=== PATIENT | female | born 1965 | race Caucasian/White ===

== ENCOUNTER 2019-07-02 11:38 | Emergency (ER) | payer OTHER, MEDICAID, SELFPAY ==
[2019-07-02 12:01] VITALS: BP 132/85; PULSE 71; RESP 18; TEMP 37.1; O2SAT 100; BMI 22.7
[2019-07-02 12:25] LABS: Add Manual Diff / Slide Review NO; Basophils Absolute Auto 0 /uL (0-100); Basophils Percent Auto 0.6 % (0-2); Eosinophils Absolute Auto 100 /uL (0-450); Lymphocytes Absolute Auto 1000 /uL (1100-4500); Lymphocytes Percent Auto 17.4 % (25-40); Mean Corpuscular HGB Conc 33.5 % (30-36); Mean Corpuscular Hemoglobin 31.1 PG (26-34); Monocytes Absolute Auto 300 /uL (0-900); Monocytes Percent Auto 5.3 % (3-14); Neutrophils Absolute Auto 4400 /uL (1500-7000); Neutrophils Percent Auto 75.7 % (50-75); Platelet Count 214 X10^3/uL (150-400); Red Blood Cell Count 4.83 X10^6/uL (4.0-5.2); Red Cell Distribution Width 13.1 % (11.6-14.8); White Blood Cell Count 5.8 X10^3/uL (4.5-11.0)
[2019-07-02] MEDS: SODIUM CHLORIDE 0.9% 1,000 ML 1000 ML IV (12:26)
[2019-07-02] MEDS: ONDANSETRON 4 MG/2 ML INJ IV ×2 (12:26→13:55)
[2019-07-02 12:37] LABS: Alanine Aminotransferase 51 IU/L (9-52); Albumin 5.1 g/dL (3.5-5.0); Albumin Globulin Ratio 1.5 (1.0-2.8); Alkaline Phosphatase 93 U/L (38-126); Aspartate Aminotransferase 66 IU/L (14-36); Bilirubin Total 0.7 mg/dL (0.2-1.3); Blood Urea Nitrogen 12 mg/dL (7-17); Calcium 9.8 mg/dL (8.4-10.2); Carbon Dioxide 25 mmol/L (22-32); Chloride 98 mmol/L (98-107); Estimated Glomerular Filt Rate > 60.0 mL/min (>60); Globulin 3.5 g/dL (1.7-4.1); Glucose 215 mg/dL (70-100); HEMOLYSIS 29 (0-50); Lipase 68 U/L (23-300); Potassium 4.3 mmol/L (3.4-5.1); Sodium 137 mmol/L (137-145); Total Protein 8.6 g/dL (6.3-8.2)
--- NOTE | 2019-07-02 12:49 | ED.NAVMDI ---
HPI - Nausea/Vomiting/Diarrhea <TAMMI Arana - Last Filed: 07/02/19 22:26> General Chief complaint: Nausea/Vomiting/Diarrhea Stated complaint: Just sick Time Seen by Provider: 07/02/19 12:15 Source: patient Mode of arrival: Ambulatory Limitations: no limitations History of Present Illness HPI Narrative: This is a 54-year-old female, nonsmoker, who presents to ED with significant other with nausea and emesis x1-3 time this morning at 9 a.m with small food particles without bile or blood. Patient reports, I am here to get hydrated. 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 She reports that her blood sugar has been yo-yoing recently. The patient denies fever, abdominal pain, diarrhea, cough or URI symptoms, rash, vision change, or urinary symptoms. Patient states she has been having chills and mild headache. According to her significant other the patient woke up feeling a bit off. Patient lives in [place] and is visiting [place] since they do have a boat in town. Related Data Home Medications Medication Instructions Recorded Confirmed acetaminophen [Pain Reliever Extra 500 mg PO TID PRN 07/02/19 07/02/19 Strength] insulin lispro [Humalog KwikPen See Rx Instructions .ROUTE .COMPLEX 07/02/19 07/02/19 Insulin] Previous Rx's Medication Instructions Recorded ondansetron HCl [Zofran] 4 mg PO Q6-8H PRN #10 tab 07/02/19 Allergies Allergy/AdvReac Type Severity Reaction Status Date / Time Sulfa (Sulfonamide Allergy Verified 07/02/19 12:01 Antibiotics) Review of Systems <TAMMI Arana - Last Filed: 07/02/19 22:26> Review of Systems Narrative: General: Reports chills Denies fever, fatigue, malaise, sweats. HEENT: Denies sinus pain, ear pain, sore throat, difficulty swallowing, dizziness. Respiratory: Denies dyspnea, cough, wheezing, hemoptysis, sputum. Cardiovascular: Denies chest pain, palpitations, orthopnea, edema. Gastrointestinal: See HPI : Denies dysuria, frequency, incontinence, hematuria, urinary retention. Musculoskeletal: Denies weakness, joint pain or bony pain. Skin: Denies rash, skin lesions, or other. Neurologic: Denies weakness, headache, numbness, change in speech, confusion, seizures, incoordination. Psychiatric: No concerning psychosocial issues. 12-point review of systems is negative except for those stated above. Patient History <TAMMI Arana - Last Filed: 07/02/19 22:26> Medical History Kidney disease (Acute) Surgical History H/O thumb surgery (Acute) Social History Smoking Status: Never smoker Social History Smoking Status: Never smoker alcohol intake frequency: holidays/special occasions only Substance Use Type: marijuana Exam [facility] Last Filed: 07/02/19 22:26> Narrative Exam Narrative: GEN: Alert, oriented x 3, well appearing and nourished, and in no acute distress. Head: Normal cephalic, atraumatic. No scalp or temporal tenderness, palpable mass or rash. EYES: Pupils are equal, round, and reactive to light and accommodation. Extraocular muscles are intact bilaterally. There is no subconjunctival hemorrhage, exudate and sclera non-icteric. ENT: Bilateral auditory canals and tympanic membranes clear. Hearing grossly intact. Nose without bleeding, purulent discharge or deviation. Facial sinuses nontender to palpate. Mucous membrane moist, no mucosal lesion. Throat without erythema, tonsillar hypertrophy or exudate. Uvula in midline, airway patent. Neck: Trachea in midline. No JVD, non-tender without lymphadenopathy. No masses or thyroid megaly. Supple, non-tender and no meningeal signs. CARDIAC: Normal regular rate and rhythm without murmurs, gallops, or rubs. No chest wall tenderness. No peripheral edema, cyanosis or pallor. Capillary refill is less than 2 seconds. RESPIRATORY: Lungs are cleat to auscultate bilaterally. No cough, wheezes, rales, or rhonchi. No stridor, respiratory distress, increase work of breathing, or accessary muscle used. ABD: Abdomen soft, nontender and non-distended. No guarding or rebound tenderness to palpate. Bowel sounds are normal in all 4 quadrants. There is no palpable masses or organomegaly. EXT: Full painless ROM of all extremities with no loss of sensation, strength, effusion or edema. SKIN: Warm, dry, normal color for patient. No erythema, lesions or rash over visible areas. BACK: Nontender without deformity or crepitance. No flank tenderness. NEUROLOGICAL: Alert and oriented to place, time and person. Sensation and motor function intact bilaterally. No facial droops, dysphasia. PSYCHIATRIC: Good judgement and reason, without hallucinations, abnormal affect or abnormal behaviors during the examination. Initial Vital Signs Initial Vital Signs: Vital Signs Temperature 98.8 F 07/02/19 12:01 Pulse Rate 71 07/02/19 12:01 Respiratory Rate 18 07/02/19 12:01 Blood Pressure 132/85 07/02/19 12:01 Pulse Oximetry 100 07/02/19 12:01 <Nannette Hilton DO - Last Filed: 07/03/19 07:42> Initial Vital Signs Initial Vital Signs: Vital Signs Temperature 98.8 F 07/02/19 12:01 Pulse Rate 71 07/02/19 12:01 Respiratory Rate 18 07/02/19 12:01 Blood Pressure 132/85 07/02/19 12:01 Pulse Oximetry 100 07/02/19 12:01 Scores <TAMMI Arana - Last Filed: 07/02/19 22:26> GCS Jose coma scale eye opening: Spontaneous Jose coma scale verbal response: Orientated [place] coma scale motor response: Obey commands Jose coma scale total score: 15 Course <TAMMI Arana - Last Filed: 07/02/19 22:26> Orders Ordered: Discontinued Medications Acetaminophen (Tylenol) 650 mg PO NOW ONE Stop: 07/02/19 12:48 Last Admin: 07/02/19 12:58 Dose: 650 mg Documented by: PETRONA Bacitracin (Bacitracin) 1 applic TOP NOW ONE Stop: 07/02/19 12:57 Sodium Chloride (Normal Saline 0.9%) 1,000 mls @ 1,000 mls/hr IV BOLUS ONE Stop: 07/02/19 13:05 Last Infusion: 07/02/19 14:20 Dose: 0 mls/hr Documented by: Admin: 07/02/19 12:26 Dose: 1,000 mls/hr Documented by: ROBERT Ondansetron HCl (Zofran) 4 mg IV NOW ONE Stop: 07/02/19 12:07 Last Admin: 07/02/19 12:26 Dose: 4 mg Documented by: ROBERT Ondansetron HCl (Zofran) 4 mg IV NOW ONE Stop: 07/02/19 13:40 Last Admin: 07/02/19 13:55 Dose: 4 mg Documented by: KPEARSO Vital Signs Vital signs: Vital Signs - 8 hr 07/02/19 12:01 07/02/19 13:21 Temperature 98.8 F Pulse Rate 71 65 Respiratory Rate 18 16 Blood Pressure 132/85 Blood Pressure [Left Arm] 121/67 Pulse Oximetry 100 96 <Nannette Hilton DO - Last Filed: 07/03/19 07:42> Orders Ordered: Discontinued Medications Acetaminophen (Tylenol) 650 mg PO NOW ONE Stop: 07/02/19 12:48 Last Admin: 07/02/19 12:58 Dose: 650 mg Documented by: PETRONA Bacitracin (Bacitracin) 1 applic TOP NOW ONE Stop: 07/02/19 12:57 Sodium Chloride (Normal Saline 0.9%) 1,000 mls @ 1,000 mls/hr IV BOLUS ONE Stop: 07/02/19 13:05 Last Infusion: 07/02/19 14:20 Dose: 0 mls/hr Documented by: Admin: 07/02/19 12:26 Dose: 1,000 mls/hr Documented by: ROBERT Ondansetron HCl (Zofran) 4 mg IV NOW ONE Stop: 07/02/19 12:07 Last Admin: 07/02/19 12:26 Dose: 4 mg Documented by: ROBERT Ondansetron HCl (Zofran) 4 mg IV NOW ONE Stop: 07/02/19 13:40 Last Admin: 07/02/19 13:55 Dose: 4 mg Documented by: KPEARSO Vital Signs Vital signs: Vital Signs - 8 hr 07/02/19 12:01 07/02/19 13:21 Temperature 98.8 F Pulse Rate 71 65 Respiratory Rate 18 16 Blood Pressure 132/85 Blood Pressure [Left Arm] 121/67 Pulse Oximetry 100 96 MDM - Nausea/Vomiting/Diarrhea <Oumar Morejon-TAMMI Batista - Last Filed: 07/02/19 22:26> Differential Diagnosis Differential diagnosis: Likely gastroenteritis, dehydration and other (Elevated blood glucose, DKA) Medical Records Attestation: I reviewed the patient's medical records. Lab Data Attestation: I reviewed the patient's lab results. Result diagrams: 07/02/19 12:15 07/02/19 12:15 Labs: Lab Results 07/02/19 07/02/19 Range/Units 12:15 12:15 WBC 5.8 (4.5-11.0) X10^3/uL RBC 4.83 (4.0-5.2) X10^6/uL Hgb 15.0 (12.0-16.0) g/dL Hct 45.0 (36-46) % MCV 93.0 (80-100) fL MCH 31.1 (26-34) PG MCHC 33.5 (30-36) % RDW 13.1 (11.6-14.8) % Plt Count 214 (150-400) X10^3/uL Neut % (Auto) 75.7 H (50-75) % Lymph % (Auto) 17.4 L (25-40) % [place] % (Auto) 5.3 (3-14) % Eos % (Auto) 1.0 L (2-4) % Baso % (Auto) 0.6 (0-2) % Neut # (Auto) 4400 (0883-1016) /uL Lymph # (Auto) 1000 L (7267-6137) /uL [place] # (Auto) 300 (0-900) /uL Eos # (Auto) 100 (0-450) /uL Baso # (Auto) 0 (0-100) /uL Sodium 137 (137-145) mmol/L Potassium 4.3 (3.4-5.1) mmol/L Chloride 98 (98-107) mmol/L Carbon Dioxide 25 (22-32) mmol/L BUN 12 (7-17) mg/dL Creatinine 0.80 (0.52-1.04) mg/dL Estimated GFR > 60.0 (>60) mL/min BUN/Creatinine Ratio 15.0 (6-22) Glucose 215 H (70-100) mg/dL Calcium 9.8 (8.4-10.2) mg/dL Total Bilirubin 0.7 (0.2-1.3) mg/dL AST 66 H (14-36) IU/L ALT 51 (9-52) IU/L Alkaline Phosphatase 93 (38-126) U/L Total Protein 8.6 H (6.3-8.2) g/dL Albumin 5.1 H (3.5-5.0) g/dL Globulin 3.5 (1.7-4.1) g/dL Albumin/Globulin Ratio 1.5 (1.0-2.8) Lipase 68 (23-300) U/L Point of Care Testing Glucose POC 196 MDM Narrative Medical decision making narrative: The patient is 54-year-old female who presents to ED with chief complain of feeling of dehydration and nausea vomiting x1 this morning. Patient denies fever, abdominal pain, urinary symptoms, CVA tenderness. Patient has history of type 1 diabetes from autoimmune disease. Patient reports her blood glucose has been fluctuating and she meant to see her cabbage salter for this. She denies recent illnesses. CBC and chemistries were unremarkable except mildly elevated glucose. Patient was treated with Zofran 4 mg times twice and IV fluid hydration. There is no indication of dehydration or leukocytosis. Physical exam on her abdomen was benign. Bowel sounds in 4 quadrant, non tenderness to palpate, no peritoneal signs. Patient was nontoxic appearing. Patient was able to tolerate ice chips without nausea or vomiting before discharged to home. Patient was afebrile with normal vital signs. Patient requested a quick evaluation and dressed over left base of thumb prior surgical site to release trigger finger. According to the patient the suture has been removed a bit prematurely and it appears to be not approximating well. There was no signs of infection. Surgical incision site was reinforced with Steri-Strips and left hand was wrapped with Kur[place] dressing as patient's request. Return precautions were discussed with the patient and patient was discharged to home with Zofran. Patient advised to hydrate with clear liquid and advanced her diet as tolerated. Patient agrees with treatment plan and no further questions were expressed at this time. Patient advised to follow up with her cabbage salter next week for the labile blood sugar. <Nannette Hilton, DO - Last Filed: 07/03/19 07:42> Lab Data Labs: Lab Results 07/02/19 07/02/19 Range/Units 12:15 12:15 WBC 5.8 (4.5-11.0) X10^3/uL RBC 4.83 (4.0-5.2) X10^6/uL Hgb 15.0 (12.0-16.0) g/dL Hct 45.0 (36-46) % MCV 93.0 (80-100) fL MCH 31.1 (26-34) PG MCHC 33.5 (30-36) % RDW 13.1 (11.6-14.8) % Plt Count 214 (150-400) X10^3/uL Neut % (Auto) 75.7 H (50-75) % Lymph % (Auto) 17.4 L (25-40) % [place] % (Auto) 5.3 (3-14) % Eos % (Auto) 1.0 L (2-4) % Baso % (Auto) 0.6 (0-2) % Neut # (Auto) 4400 (3414-2763) /uL Lymph # (Auto) 1000 L (9331-4918) /uL [place] # (Auto) 300 (0-900) /uL Eos # (Auto) 100 (0-450) /uL Baso # (Auto) 0 (0-100) /uL Sodium 137 (137-145) mmol/L Potassium 4.3 (3.4-5.1) mmol/L Chloride 98 (98-107) mmol/L Carbon Dioxide 25 (22-32) mmol/L BUN 12 (7-17) mg/dL Creatinine 0.80 (0.52-1.04) mg/dL Estimated GFR > 60.0 (>60) mL/min BUN/Creatinine Ratio 15.0 (6-22) Glucose 215 H (70-100) mg/dL Calcium 9.8 (8.4-10.2) mg/dL Total Bilirubin 0.7 (0.2-1.3) mg/dL AST 66 H (14-36) IU/L ALT 51 (9-52) IU/L Alkaline Phosphatase 93 (38-126) U/L Total Protein 8.6 H (6.3-8.2) g/dL Albumin 5.1 H (3.5-5.0) g/dL Globulin 3.5 (1.7-4.1) g/dL Albumin/Globulin Ratio 1.5 (1.0-2.8) Lipase 68 (23-300) U/L Point of Care Testing Glucose POC 196 Discharge Plan Departure Patient Disposition: Home Clinical Impression: Nausea & vomiting Qualifiers: Vomiting type: unspecified Vomiting Intractability: non-intractable Qualified Code(s): R11.2 - Nausea with vomiting, unspecified Discharge Date/Time: 07/02/19 14:22 Instructions: DI for Vomiting -- Adult Activity Restrictions/Additional Instructions: You have been diagnosed with [nausea and vomiting without abdominal pain or fever. The lab test today were unremarkable except mildly elevated glucose as to 215]. What to do: *Take your medications as directed. Please take Zofran as needed if you have nausea or vomiting. Please wait about 15 minutes after the medication before rehydrating herself with small sips of liquids. *Follow up with your primary care provider and cabbage salter in 2-3 days, call for an appointment. Let them know you were seen in the ED and that we asked you to be seen in follow up. *Return to ED if you have any new, worsening, or concerning symptoms, such as [chest pain, breathing difficulty, unable to tolerate fluids after the medication, fever, abdominal pain, blood in her vomit or stool, signs of infection on your left hand]. Prescriptions: New ondansetron HCl [Zofran] 4 mg tablet 4 mg PO Q6-8H PRN (Reason: nausea and vomiting) Qty: 10 RF: 0 No Action acetaminophen [Pain Reliever Extra Strength] 500 mg tablet 500 mg PO TID PRN (Reason: pain) RF: 0 insulin lispro [Humalog KwikPen Insulin] 100 unit/mL insulin pen See Rx Instructions .ROUTE .COMPLEX RF: 0 Referrals: Jevon Shaffer DO [Primary Care Provider] -
[2019-07-02] MEDS: ACETAMINOPHEN 325 MG TABLET 650 MG PO (12:58)
[2019-07-02 13:21] VITALS: BP 121/67; PULSE 65; RESP 16; O2SAT 96
== END 2019-07-02 14:22 | disposition home or self-care (01) ==
PROVIDERS: Emergency Medicine; Emergency Provider Nurse Practitioner Family; PCP Family Medicine
DX: R11.2 Nausea with vomiting, unspecified (principal)
CPT/HCPCS: 80053; 82962; 83690; 85025; 96361; 96374; 96376; 99283; 99284; J2405

== ENCOUNTER → 2021-01-18 16:25 | Outpatient (CLI) | payer OTHER, MEDICAID, SELFPAY ==
[2021-01-18] MEDS: COVID-19 VACC #1, MRNA(MOD) 100 MCG/0.5 ML VIAL IM (16:42)
== END ==
PROVIDERS: PCP Family Medicine; Visit Provider Internal Medicine
DX: Z23 Encounter for immunization (principal)
CPT/HCPCS: 0011A; 91301

== ENCOUNTER → 2021-02-23 10:53 | Outpatient (CLI) | payer MEDICAID, SELFPAY ==
[2021-02-23] MEDS: COVID-19 VACC #2, MRNA(MOD) 100 MCG/0.5 ML VIAL IM (10:59)
== END ==
PROVIDERS: PCP Family Medicine; Visit Provider Internal Medicine
DX: Z23 Encounter for immunization (principal)
CPT/HCPCS: 0012A; 91301

== ENCOUNTER 2023-08-17 19:58 | Emergency (ER) | payer OTHER, MEDICAID, SELFPAY ==
[2023-08-17 20:16] VITALS: BP 132/83; PULSE 70; RESP 18; TEMP 36.4; O2SAT 100; BMI 23.3
[2023-08-17 20:30] VITALS: PULSE 65; O2SAT 100
[2023-08-17 20:31] VITALS: BP 114/81; PULSE 67; O2SAT 100
[2023-08-17 21:00] VITALS: PULSE 64; O2SAT 100
[2023-08-17 21:30] VITALS: PULSE 63; O2SAT 100
--- NOTE | 2023-08-17 21:57 | ED.GENADULT ---
HPI - General Adult General Chief complaint: Diabetic Problem Stated complaint: needs insulin/ pump is empty .6 Time Seen by Provider: 08/17/23 21:52 Source: patient Mode of arrival: Ambulatory History of Present Illness HPI narrative: Patient 58-year-old female history of hyperlipidemia insulin-dependent diabetes with an insulin pump presenting today with hyperglycemia. She is visiting from out of town she reports that her insulin pump ran out insulin. She is no nausea no vomiting no abdominal pain. Glucose in the ED is 408. She is requesting insulin. She is no chest pain shortness of breath no other symptoms she is emotional. Related Data Home Medications Medication Instructions Recorded Confirmed acetaminophen 500 mg tablet (Pain 500 mg PO TID PRN pain 07/02/19 07/02/19 Reliever Extra Strength (acetaminophen)) insulin lispro 100 unit/mL See Rx Instructions .Route .COMPLEX 07/02/19 07/02/19 subcutaneous pen (Humalog KwikPen (U-100) Insulin) Previous Rx's Medication Instructions Recorded ondansetron HCl 4 mg tablet 4 mg PO Q6-8H PRN nausea and 07/02/19 (Zofran) vomiting #10 tabs Allergies Allergy/AdvReac Type Severity Reaction Status Date / Time Sulfa (Sulfonamide AdvReac Rash Verified 08/17/23 20:16 Antibiotics) Patient History Medical History (Updated 08/17/23 @ 21:59 by Nannette Hilton DO) Kidney disease Surgical History H/O thumb surgery Social History Smoking Status: Never smoker Smoking Status: Never smoker alcohol intake frequency: a few times a week Alcohol type: wine Substance Use Type: does not use Exam Initial Vital Signs Initial Vital Signs: Vital Signs Temperature 97.6 F 08/17/23 20:16 Pulse Rate 70 08/17/23 20:16 Respiratory Rate 18 08/17/23 20:16 Blood Pressure 132/83 08/17/23 20:16 Pulse Oximetry 100 08/17/23 20:16 Oxygen Delivery Method Room Air 08/17/23 20:16 GENERAL: Well-appearing, well-nourished and in no acute distress. CARDIOVASCULAR: peripheral pulses in tact, cap refill <2 sec RESPIRATORY: No respiratory distress, speaks in full sentences without difficulty ABDOMEN: Soft, nontender, no guarding or rebound EXTREMITIES: Normal range of motion, no clubbing or edema. Neurovascularly intact NEUROLOGICAL: Cranial nerves II through XII grossly intact. Normal gait and speech. SKIN: Warm, dry, no petechiae, no rashes or lesions. Course Orders Ordered: Discontinued Medications Insulin Human Regular (Insulin Regular 100 Unit/Ml 3 Ml Vial) 6 unit SUBCUT NOW ONE Stop: 08/17/23 21:43 Vital Signs Vital signs: Vital Signs - 8 hr 08/17/23 20:16 08/17/23 20:30 08/17/23 20:31 Temperature 97.6 F Pulse Rate 70 65 Respiratory Rate 18 Blood Pressure 132/83 114/81 Pulse Oximetry 100 100 Oxygen Delivery Method Room Air 08/17/23 20:31 08/17/23 21:00 08/17/23 21:30 Temperature Pulse Rate 67 64 63 Respiratory Rate Blood Pressure Pulse Oximetry 100 100 100 Oxygen Delivery Method Medical Decision Making Lab Data Labs: Point of Care Testing Glucose POC 408 Point of care testing: Point of Care Testing Glucose POC 408 [facility] Narrative Medical decision making narrative: Patient is 58-year-old female history of insulin-dependent diabetes. She is no nausea vomiting or signs or symptoms consistent with DKA. She has only been out of her insulin for couple of hours at most. She received 6 units subcutaneous insulin here in the ED. At this time I see no need for any further workup. She is going home and will fill her insulin pump. Discharge Plan Departure Patient Disposition: Home Clinical Impression: Hyperglycemia Activity Restrictions/Additional Instructions: *You have been diagnosed with hyperglycemia *What to do: At this time you need to refill your pump with insulin. you received 6 units of insulin in the ED *Continue to take medications as directed *Follow up with your primary care provider in 2-3 days or call [phone] *Return to ER if you should have or any new, worsening or concerning symptoms Prescriptions: No Action acetaminophen [Pain Reliever ES(acetaminophn)] 500 mg tablet 500 mg PO TID PRN (Reason: pain) insulin lispro [Humalog KwikPen Insulin] 100 unit/mL insulin pen See Rx Instructions .ROUTE .COMPLEX Rx Instructions: inject subcutaneously UP TO 10 units IN DIVIDED DOSES DAILY ondansetron HCl [Zofran] 4 mg tablet 4 mg PO Q6-8H PRN (Reason: nausea and vomiting) Qty: 10 0RF Referrals: Jevon Shaffer DO [Primary Care Provider] - Stand Alone Forms: Patient Portal/API
[2023-08-17] MEDS: INSULIN REGULAR 100 UNIT/ML 3 ML VIAL 6 UNIT SUBCUT (21:58)
== END 2023-08-17 22:06 | disposition home or self-care (01) ==
PROVIDERS: Emergency Provider Emergency Medicine; PCP Family Medicine
DX: E11.65 Type 2 diabetes mellitus with hyperglycemia (principal); Z96.41 Presence of insulin pump (external) (internal); Z79.4 Long term (current) use of insulin
CPT/HCPCS: 82962; 96372; 99282; 99283